=== PATIENT | male | born 1935 | race Caucasian/White ===

== ENCOUNTER 2021-06-15 17:21 | Inpatient (IN) ==
[2021-06-15 21:49] LABS: Basophils % 0.4 % (0.0-0.8); Eosinophils % 0.1 % (0.00-10.9); Hematocrit 32.8 VOL% (42.0-52.0); Hemoglobin 10.9 GM/DL (14.0-18.0); Immature Granulocytes % 0.5 %; Immature Granulocytes Absolute 0.06 #; Lymphocytes # 0.8 10*3/uL (1.4-4.0); Lymphocytes % 7.5 % (21.2-54.2); Mean Corpuscular HGB Conc 33.2 GM/DL (32-36); Mean Corpuscular Volume 93.7 FL (87-102); Mean Platelet Volume 10.5 FL (9.6-12.0); Monocytes % 10.4 % (1.7-12.7); Neutrophils % 81.1 % (38.7-73.9); Platelet Count 294 T/CUMM (130-400); White Blood Count 11.2 T/CUMM (4-12)
[2021-06-15 21:52] LABS: Uric Acid 8.6 MG/DL (3.5-7.2)
[2021-06-15 21:56] LABS: Albumin 3.3 G/DL (3.4-5.0); Bilirubin,Total 1.1 MG/DL (0.20-1.00); Calcium 9.1 MG/DL (8.5-10.1); Osmolality,Calculated 281.5 MOS/KG (273-304); Potassium 3.8 MMOL/L (3.5-5.1)
[2021-06-15] MEDS ORDERED: COLCHICINE 0.6 MG CAPSULE PO STA (21:58)
[2021-06-15] MEDS ORDERED: KETOROLAC 30 MG/1 ML VIAL IV STA (21:58)
[2021-06-15] MEDS ORDERED: DEXAMETHASONE 4 MG/1 ML VIAL IV STA (21:58)
[2021-06-15 23:33] LABS: Bilirubin,Urine Negative (Negative); Blood, Urine Negative (Negative); Glucose,Urine (UA) Negative (Negative); Hyaline Casts,Urine 13 /LPF (0-3); Ketones,Urine Negative (Negative); Mucus,Urine Occasional /LPF (Occasional); Nitrite,Urine Negative (Negative); Protein,Urine Negative; RBC,Urine 2 /HPF (0-4); Squamous Epithelial Cell,Urine Occasional /HPF (0-10); Urine Appearance CLEAR (Clear); Urine Color Yellow (Yellow); Urine Specific Gravity 1.016 (1.001-1.035); Urine Urobilinogen < 2.0 EU/DL (0.2-1.0)
[2021-06-16] MEDS ORDERED: DEXTROSE 50% 25 GM/50 ML VIAL IV PRN ×2 (00:45→10:58)
[2021-06-16] MEDS ORDERED: GLUCAGON 1 MG VIAL IM PRN ×2 (00:45→10:58)
[2021-06-16] MEDS ORDERED: ACETAMINOPHEN 325 MG TABLET PO PRN (00:46)
[2021-06-16] MEDS ORDERED: KETOROLAC 30 MG/1 ML VIAL IV PRN (00:46)
[2021-06-16] MEDS ORDERED: ONDANSETRON 4 MG/2 ML VIAL IV PRN (00:46)
[2021-06-16] MEDS ORDERED: DOCUSATE SODIUM 100 MG CAPSULE PO PRN (00:46)
[2021-06-16 04:33] LABS: Basophils % 0.1 % (0.0-0.8); Eosinophils % 0.1 % (0.00-10.9); Hematocrit 38.1 VOL% (42.0-52.0); Hemoglobin 12.3 GM/DL (14.0-18.0); Immature Granulocytes % 0.7 %; Immature Granulocytes Absolute 0.08 #; Lymphocytes # 0.7 10*3/uL (1.4-4.0); Lymphocytes % 5.8 % (21.2-54.2); Mean Corpuscular HGB Conc 32.3 GM/DL (32-36); Mean Corpuscular Volume 94.8 FL (87-102); Mean Platelet Volume 10.4 FL (9.6-12.0); Monocytes % 5.8 % (1.7-12.7); Neutrophils % 87.5 % (38.7-73.9); Platelet Count 278 T/CUMM (130-400); Red Blood Count 4.02 MC/CUMM (3.8-5.5); White Blood Count 11.2 T/CUMM (4-12)
[2021-06-16 05:34] LABS: Calcium 9.5 MG/DL (8.5-10.1); Osmolality,Calculated 283.5 MOS/KG (273-304); Potassium 3.9 MMOL/L (3.5-5.1)
[2021-06-16] MEDS ORDERED: LIDOCAINE 1% 50 ML VIAL MISC INJ ONE (07:54)
[2021-06-16 08:16] LABS: Cholesterol Crystals None Seen /LPF
[2021-06-16 08:22] LABS: Lymphocytes,Synovial Fluid 2 %; Neutrophils,Synovial Fluid 95 %
[2021-06-16] MEDS ORDERED: DEXAMETHASONE 4 MG/1 ML VIAL IV SCH (09:00)
[2021-06-16] MEDS: COLCHICINE 0.6 MG CAPSULE PO SCH ×2 (09:53→21:22)
[2021-06-16] MEDS ORDERED: DIAZEPAM 5 MG TABLET PO PRN (10:58)
[2021-06-16] MEDS: cefTRIAXone 2,000 MG in SODIUM CHLORIDE 0.9% 100 ML IV SCH (11:49)
[2021-06-16] MEDS: INSULIN REGULAR 100 UNIT/ML SUBCUT SCH ×3 (11:49→23:53)
[2021-06-16] MEDS: VANCOMYCIN INJ 1,000 MG in SODIUM CHLORIDE 0.9% 250 ML IV SCH (16:55)
[2021-06-16] MEDS: ATORVASTATIN 40 MG TABLET PO SCH (21:22)
[2021-06-16] MEDS: ENOXAPARIN 40 MG/0.4 ML SYRINGE SUBCUT SCH (21:22)
[2021-06-16] MEDS: TICAGRELOR 90 MG TABLET PO SCH (21:22)
[2021-06-16] MEDS: GABAPENTIN 300 MG CAPSULE PO SCH (21:22)
[2021-06-17 06:30] LABS: Basophils % 0.1 % (0.0-0.8); Hematocrit 33.8 VOL% (42.0-52.0); Hemoglobin 11.2 GM/DL (14.0-18.0); Immature Granulocytes % 0.6 %; Immature Granulocytes Absolute 0.08 #; Lymphocytes # 0.6 10*3/uL (1.4-4.0); Lymphocytes % 4.8 % (21.2-54.2); Mean Corpuscular HGB Conc 33.1 GM/DL (32-36); Mean Corpuscular Volume 93.9 FL (87-102); Mean Platelet Volume 10.8 FL (9.6-12.0); Monocytes % 8.8 % (1.7-12.7); Neutrophils % 85.7 % (38.7-73.9); Platelet Count 283 T/CUMM (130-400); Red Cell Distribution Width 14.7 % (9.3-17.3); White Blood Count 13.1 T/CUMM (4-12)
[2021-06-17 06:53] LABS: Calcium 8.9 MG/DL (8.5-10.1); Osmolality,Calculated 284.3 MOS/KG (273-304); Potassium 3.4 MMOL/L (3.5-5.1)
[2021-06-17 07:10] LABS: Band Neutrophils 2 % (0-10); Hypochromasia 1+; Lymphocytes 3 % (20-55); Segmented Neutrophils 87 % (50-85); Total Cells Counted 100
[2021-06-17 07:11] LABS: Microcytosis 1+; Platelet Estimate Normal; Polychromasia Slight
[2021-06-17] MEDS: TICAGRELOR 90 MG TABLET PO SCH ×2 (10:09→22:06)
[2021-06-17] MEDS: ASPIRIN EC 81 MG TABLET PO SCH (10:10)
[2021-06-17] MEDS: COLCHICINE 0.6 MG CAPSULE PO SCH ×2 (10:10→22:05)
[2021-06-17] MEDS: GABAPENTIN 300 MG CAPSULE PO SCH ×2 (10:10→22:06)
[2021-06-17] MEDS: cefTRIAXone 2,000 MG in SODIUM CHLORIDE 0.9% 100 ML IV SCH (10:11)
[2021-06-17] MEDS ORDERED: TEMAZEPAM 15 MG CAPSULE PO PRN (10:42)
[2021-06-17] MEDS: INSULIN REGULAR 100 UNIT/ML SUBCUT SCH ×4 (10:51→22:07)
[2021-06-17] MEDS ORDERED: TUBERCULIN SKIN TEST 0.1 ML SYRINGE INTRADERM ONE (11:00)
[2021-06-17] MEDS: VANCOMYCIN INJ 1,000 MG in SODIUM CHLORIDE 0.9% 250 ML IV SCH (13:02)
[2021-06-17] MEDS ORDERED: POTASSIUM CHLORIDE 20 MEQ TABLET PO ONE (17:00)
[2021-06-17] MEDS: ATORVASTATIN 40 MG TABLET PO SCH (22:06)
[2021-06-17] MEDS: ENOXAPARIN 40 MG/0.4 ML SYRINGE SUBCUT SCH (22:06)
[2021-06-18 05:45] LABS: Basophils % 0.2 % (0.0-0.8); Eosinophils # 0.1 10*3/uL (0.0-0.87); Eosinophils % 1.1 % (0.00-10.9); Hematocrit 37.6 VOL% (42.0-52.0); Hemoglobin 12.3 GM/DL (14.0-18.0); Immature Granulocytes % 1.3 %; Immature Granulocytes Absolute 0.11 #; Lymphocytes # 0.9 10*3/uL (1.4-4.0); Lymphocytes % 10.8 % (21.2-54.2); Mean Corpuscular HGB Conc 32.7 GM/DL (32-36); Mean Corpuscular Volume 94.7 FL (87-102); Mean Platelet Volume 10.6 FL (9.6-12.0); Monocytes % 11.2 % (1.7-12.7); Neutrophils % 75.4 % (38.7-73.9); Platelet Count 310 T/CUMM (130-400); Red Blood Count 3.97 MC/CUMM (3.8-5.5); Red Cell Distribution Width 14.8 % (9.3-17.3); White Blood Count 8.5 T/CUMM (4-12)
[2021-06-18] MEDS: VANCOMYCIN INJ 1,000 MG in SODIUM CHLORIDE 0.9% 250 ML IV SCH (05:47)
[2021-06-18 06:25] LABS: Osmolality,Calculated 286.8 MOS/KG (273-304); Potassium 3.8 MMOL/L (3.5-5.1)
[2021-06-18 07:54] VITALS: BP 141/65
[2021-06-18] MEDS: INSULIN REGULAR 100 UNIT/ML SUBCUT SCH ×2 (09:45→13:57)
[2021-06-18] MEDS: cefTRIAXone 2,000 MG in SODIUM CHLORIDE 0.9% 100 ML IV SCH (09:46)
[2021-06-18] MEDS: ASPIRIN EC 81 MG TABLET PO SCH (09:48)
[2021-06-18] MEDS: GABAPENTIN 300 MG CAPSULE PO SCH (09:48)
[2021-06-18] MEDS: TICAGRELOR 90 MG TABLET PO SCH (09:49)
[2021-06-18] MEDS: COLCHICINE 0.6 MG CAPSULE PO SCH (09:49)
[2021-06-18] MEDS ORDERED: HEPARIN LOCK FLUSH 500 UNIT/5 ML SYRINGE IV PRN (12:53)
== END 2021-06-18 13:28 | DRG 554 ==
LOC: EDBD → EDUNIT# → N.EDINP 17:21 → N.ED 17:21 → SUATTDRO 06-16 00:45 → N.5E 06-16 11:16
PROVIDERS: ADMIT Internal Medicine; ATTEND Internal Medicine

== ENCOUNTER 2021-07-16 19:09 | Inpatient (IN) ==
[2021-07-16] MEDS ORDERED: SODIUM CHLORIDE 0.9% 1,000 ML IV STA (20:37)
[2021-07-16] MEDS ORDERED: ONDANSETRON 4 MG/2 ML VIAL IV STA (20:44)
[2021-07-16 20:45] LABS: Basophils % 0.2 % (0.0-0.8); Hematocrit 42.5 VOL% (42.0-52.0); Hemoglobin 13.8 GM/DL (14.0-18.0); Immature Granulocytes % 1.1 %; Immature Granulocytes Absolute 0.09 #; Lymphocytes # 0.3 10*3/uL (1.4-4.0); Lymphocytes % 3.3 % (21.2-54.2); Mean Corpuscular HGB Conc 32.5 GM/DL (32-36); Mean Corpuscular Volume 93.4 FL (87-102); Mean Platelet Volume 12.2 FL (9.6-12.0); Monocytes % 10.2 % (1.7-12.7); Neutrophils % 85.2 % (38.7-73.9); Platelet Count 237 T/CUMM (130-400); Red Blood Count 4.55 MC/CUMM (3.8-5.5); Red Cell Distribution Width 15.3 % (9.3-17.3); White Blood Count 8.3 T/CUMM (4-12)
[2021-07-16 21:12] LABS: Alanine Aminotransferase 320 U/L (16-61); Albumin 3.6 G/DL (3.4-5.0); Alkaline Phosphatase 178 U/L (45-117); Aspartate Amino Transferase 319 U/L (0-37); Blood Urea Nitrogen 47 MG/DL (7-18); Calcium 8.3 MG/DL (8.5-10.1); Carbon Dioxide 22 MMOL/L (21-32); Estimated Glom Filtration Rate 32 ML/MIN; Glucose 138 MG/DL (74-106); Osmolality,Calculated 292.4 MOS/KG (273-304); Potassium 3.3 MMOL/L (3.5-5.1); Sodium 140 MMOL/L (136-145); Total Protein 6.5 G/DL (6.4-8.2)
[2021-07-16 23:12] LABS: Hypochromasia Slight; Ovalocytes Slight
[2021-07-16] MEDS ORDERED: MAGNESIUM SULF RIDER 4 GM/100 ML PREMIX IV ONE (23:31)
[2021-07-16] MEDS ORDERED: ALBUTEROL/IPRATROPIUM 3 ML NEB RESP TX PRN (23:34)
[2021-07-17] MEDS ORDERED: SODIUM CHLORIDE 0.9% 1,000 ML IV SCH (00:30)
[2021-07-17] MEDS: cefTRIAXone 1,000 MG in SODIUM CHLORIDE 0.9% 100 ML IV SCH ×2 (02:38→23:43)
[2021-07-17] MEDS: ENOXAPARIN 40 MG/0.4 ML SYRINGE SUBCUT SCH ×2 (03:10→23:43)
[2021-07-17 04:53] LABS: Albumin 2.9 G/DL (3.4-5.0); Bilirubin,Direct 0.53 MG/DL (0.0-0.20); Bilirubin,Indirect 0.7 MG/DL (0.0-1.0); Bilirubin,Total 1.2 MG/DL (0.20-1.00); Calcium 7.5 MG/DL (8.5-10.1); Osmolality,Calculated 288.5 MOS/KG (273-304); Potassium 3.5 MMOL/L (3.5-5.1); Total Protein 5.9 G/DL (6.4-8.2)
[2021-07-17 05:28] LABS: Hepatitis B Core IgM Quant 0.08 Index; Hepatitis B Surface Ag Quant < 0.10 Index; Hepatitis B Surface Ag Result Non-Reactive (NonReactive); Hepatitis C Virus Ab Quant 0.05 Index; Hepatitis C Virus Ab Result Non-Reactive (NonReactive)
[2021-07-17] MEDS: POTASSIUM CHLORIDE RIDER 10 MEQ/100 ML PREMIX IV SCH ×6 (06:58→11:58)
[2021-07-17 07:54] LABS: Bilirubin,Urine Negative (Negative); Blood, Urine Negative (Negative); Glucose,Urine (UA) Negative (Negative); Hyaline Casts,Urine 6 /LPF (0-3); Ketones,Urine 20 mg/dL (Negative); Mucus,Urine Occasional /LPF (Occasional); Nitrite,Urine Negative (Negative); Protein,Urine Negative; RBC,Urine <1 /HPF (0-4); Urine Appearance CLEAR (Clear); Urine Color Yellow (Yellow); Urine Specific Gravity 1.016 (1.001-1.035); Urine Urobilinogen < 2.0 EU/DL (0.2-1.0)
[2021-07-17] MEDS: POTASSIUM CHLORIDE 20 MEQ TABLET PO PRN (23:42)
[2021-07-18] MEDS: POTASSIUM CHLORIDE 20 MEQ TABLET PO PRN ×2 (01:59→04:23)
[2021-07-18 05:48] LABS: Calcium 7.8 MG/DL (8.5-10.1); Osmolality,Calculated 276.7 MOS/KG (273-304); Potassium 4.2 MMOL/L (3.5-5.1)
[2021-07-18] MEDS ORDERED: ONDANSETRON 4 MG/2 ML VIAL IV PRN (09:45)
[2021-07-18] MEDS: PIPERACILLIN/TAZOBACTAM 3,375 MG in SODIUM CHLORIDE 0.9% 100 ML IV SCH ×2 (12:20→21:23)
[2021-07-18] MEDS: ALBUTEROL/IPRATROPIUM 3 ML NEB RESP TX SCH ×2 (13:20→20:50)
[2021-07-19] MEDS: ENOXAPARIN 40 MG/0.4 ML SYRINGE SUBCUT SCH ×2 (00:01→23:32)
[2021-07-19] MEDS: ALBUTEROL/IPRATROPIUM 3 ML NEB RESP TX SCH ×4 (00:06→19:43)
[2021-07-19] MEDS: PIPERACILLIN/TAZOBACTAM 3,375 MG in SODIUM CHLORIDE 0.9% 100 ML IV SCH ×3 (03:54→20:34)
[2021-07-19 05:21] LABS: Basophils % 0.4 % (0.0-0.8); Eosinophils # 0.1 10*3/uL (0.0-0.87); Eosinophils % 0.9 % (0.00-10.9); Hematocrit 33.8 VOL% (42.0-52.0); Immature Granulocytes % 2.7 %; Immature Granulocytes Absolute 0.15 #; Lymphocytes # 0.4 10*3/uL (1.4-4.0); Lymphocytes % 7.9 % (21.2-54.2); Mean Corpuscular HGB Conc 32.5 GM/DL (32-36); Mean Corpuscular Volume 94.4 FL (87-102); Mean Platelet Volume 12.5 FL (9.6-12.0); Monocytes % 13.5 % (1.7-12.7); Neutrophils % 74.6 % (38.7-73.9); Platelet Count 147 T/CUMM (130-400); Red Blood Count 3.58 MC/CUMM (3.8-5.5); Red Cell Distribution Width 15.7 % (9.3-17.3); White Blood Count 5.5 T/CUMM (4-12)
[2021-07-19 05:55] LABS: Albumin 2.7 G/DL (3.4-5.0); Bilirubin,Total 0.7 MG/DL (0.20-1.00); Calcium 7.8 MG/DL (8.5-10.1); Osmolality,Calculated 277.7 MOS/KG (273-304); Potassium 3.5 MMOL/L (3.5-5.1); Total Protein 5.5 G/DL (6.4-8.2)
[2021-07-19] MEDS: POTASSIUM CHLORIDE 20 MEQ TABLET PO PRN ×2 (08:16→11:47)
[2021-07-20] MEDS: ALBUTEROL/IPRATROPIUM 3 ML NEB RESP TX SCH ×4 (01:35→20:10)
[2021-07-20] MEDS: HYDROmorphone 2 MG/1 ML VIAL IV PRN ×2 (03:39→19:50)
[2021-07-20] MEDS: PIPERACILLIN/TAZOBACTAM 3,375 MG in SODIUM CHLORIDE 0.9% 100 ML IV SCH ×3 (03:45→19:48)
[2021-07-20] MEDS ORDERED: ZINC OXIDE PASTE 113 GM TUBE TOP PRN (12:00)
[2021-07-21] MEDS: ALBUTEROL/IPRATROPIUM 3 ML NEB RESP TX SCH ×4 (00:28→19:09)
[2021-07-21] MEDS: ENOXAPARIN 40 MG/0.4 ML SYRINGE SUBCUT SCH (00:31)
[2021-07-21] MEDS: PIPERACILLIN/TAZOBACTAM 3,375 MG in SODIUM CHLORIDE 0.9% 100 ML IV SCH ×3 (03:44→21:03)
[2021-07-21] MEDS ORDERED: TUBERCULIN SKIN TEST 0.1 ML SYRINGE INTRADERM ONE (08:08)
[2021-07-21] MEDS: ursodioL 300 MG CAPSULE PO SCH ×2 (13:37→21:03)
[2021-07-21] MEDS: HYDROmorphone 2 MG/1 ML VIAL IV PRN ×2 (16:58→21:04)
[2021-07-22] MEDS: ALBUTEROL/IPRATROPIUM 3 ML NEB RESP TX SCH ×3 (00:23→12:57)
[2021-07-22] MEDS: ENOXAPARIN 40 MG/0.4 ML SYRINGE SUBCUT SCH (00:46)
[2021-07-22] MEDS: PIPERACILLIN/TAZOBACTAM 3,375 MG in SODIUM CHLORIDE 0.9% 100 ML IV SCH ×2 (04:19→12:09)
[2021-07-22] MEDS: ursodioL 300 MG CAPSULE PO SCH (08:46)
[2021-07-22 11:15] VITALS: BP 108/75
[2021-07-22] MEDS: HYDROmorphone 2 MG/1 ML VIAL IV PRN (11:53)
== END 2021-07-22 16:31 | DRG 683 ==
LOC: N.ED 19:09 → SUATTDRO 23:30 → N.EDINP 23:30 → N.3E 07-17 01:26
PROVIDERS: ADMIT Internal Medicine; ATTEND Internal Medicine Geriatric Medicine

== ENCOUNTER 2021-08-09 20:08 | Inpatient (IN) ==
[2021-08-09 22:36] LABS: Basophils % 0.5 % (0.0-0.8); Eosinophils # 0.1 10*3/uL (0.0-0.87); Eosinophils % 2.7 % (0.00-10.9); Hematocrit 45.1 VOL% (42.0-52.0); Hemoglobin 14.8 GM/DL (14.0-18.0); Immature Granulocytes % 1.4 %; Immature Granulocytes Absolute 0.03 #; Lymphocytes # 0.3 10*3/uL (1.4-4.0); Lymphocytes % 15.5 % (21.2-54.2); Mean Corpuscular HGB Conc 32.8 GM/DL (32-36); Mean Corpuscular Volume 89.8 FL (87-102); Monocytes % 17.3 % (1.7-12.7); Neutrophils % 62.6 % (38.7-73.9); Platelet Count 151 T/CUMM (130-400); Red Blood Count 5.02 MC/CUMM (3.8-5.5); Red Cell Distribution Width 15.9 % (9.3-17.3); White Blood Count 2.2 T/CUMM (4-12)
[2021-08-09 22:57] LABS: Alanine Aminotransferase 152 U/L (16-61); Albumin 2.9 G/DL (3.4-5.0); Alkaline Phosphatase 162 U/L (45-117); Aspartate Amino Transferase 148 U/L (0-37); Blood Urea Nitrogen 56 MG/DL (7-18); Calcium 8.5 MG/DL (8.5-10.1); Carbon Dioxide 18 MMOL/L (21-32); Estimated Glom Filtration Rate 29 ML/MIN; Glucose 132 MG/DL (74-106); Osmolality,Calculated 287.1 MOS/KG (273-304); Sodium 135 MMOL/L (136-145); Total Protein 6.5 G/DL (6.4-8.2)
[2021-08-09] MEDS ORDERED: SODIUM CHLORIDE 0.9% 1,000 ML IV STA (23:52)
[2021-08-10] MEDS ORDERED: ACETAMINOPHEN 325 MG TABLET PO PRN (00:41)
[2021-08-10] MEDS ORDERED: ONDANSETRON 4 MG/2 ML VIAL IV PRN (00:41)
[2021-08-10] MEDS ORDERED: DEXTROSE 50% 25 GM/50 ML VIAL IV PRN ×2 (00:41)
[2021-08-10] MEDS ORDERED: MELATONIN 3 MG TABLET PO PRN (00:41)
[2021-08-10] MEDS ORDERED: GLUCAGON 1 MG VIAL IM PRN ×2 (00:41)
[2021-08-10] MEDS ORDERED: SODIUM CHLORIDE 0.9% 1,000 ML IV ONE (00:50)
[2021-08-10 00:56] LABS: Bilirubin,Urine Negative (Negative); Blood, Urine Moderate mg/dL (Negative); Glucose,Urine (UA) Negative (Negative); Ketones,Urine 5 mg/dL (Negative); Mucus,Urine Occasional /LPF (Occasional); Nitrite,Urine Negative (Negative); Protein,Urine 100 MG/DL; RBC,Urine 2 /HPF (0-4); Squamous Epithelial Cell,Urine Occasional /HPF (0-10); Urine Appearance CLEAR (Clear); Urine Color Yellow (Yellow); Urine Specific Gravity 1.018 (1.001-1.035); Urine Urobilinogen < 2.0 EU/DL (0.2-1.0)
[2021-08-10] MEDS ORDERED: SODIUM CHLORIDE 0.9% 1,000 ML IV SCH (01:00)
[2021-08-10] MEDS ORDERED: POTASSIUM CHLORIDE 20 MEQ TABLET PO PRN (01:41)
[2021-08-10 01:58] LABS: Lymphocytes 27 % (20-55); Nucleated Red Blood Cells 1 (0-5); Platelet Estimate Normal; Segmented Neutrophils 64 % (50-85); Total Cells Counted 100
[2021-08-10 01:59] LABS: Anisocytosis 1+; Microcytosis Slight
[2021-08-10 02:00] LABS: Ovalocytes Few
[2021-08-10] MEDS: ENOXAPARIN 30 MG/0.3 ML SYRINGE SUBCUT SCH ×2 (02:00→13:20)
[2021-08-10 06:53] LABS: Eosinophils % 0.5 % (0.00-10.9); Hematocrit 39.4 VOL% (42.0-52.0); Hemoglobin 13.2 GM/DL (14.0-18.0); Immature Granulocytes % 1.1 %; Immature Granulocytes Absolute 0.02 #; Lymphocytes # 0.3 10*3/uL (1.4-4.0); Lymphocytes % 14.3 % (21.2-54.2); Mean Corpuscular HGB Conc 33.5 GM/DL (32-36); Mean Corpuscular Volume 90.8 FL (87-102); Monocytes % 18.7 % (1.7-12.7); Neutrophils % 65.4 % (38.7-73.9); Platelet Count 146 T/CUMM (130-400); Red Blood Count 4.34 MC/CUMM (3.8-5.5); Red Cell Distribution Width 15.7 % (9.3-17.3); White Blood Count 1.8 T/CUMM (4-12)
[2021-08-10 07:17] LABS: Hypochromasia 1+; Lymphocytes 23 % (20-55); Segmented Neutrophils 62 % (50-85); Total Cells Counted 100
[2021-08-10 07:18] LABS: Acanthocytes Few; Microcytosis 1+; Platelet Estimate Adequate
[2021-08-10 07:19] LABS: Ovalocytes Slight
[2021-08-10 07:26] LABS: Albumin 2.5 G/DL (3.4-5.0); Bilirubin,Total 1.2 MG/DL (0.20-1.00); Calcium 7.9 MG/DL (8.5-10.1); Ferritin 2359.3 ng/mL (26-388); Potassium 2.6 MMOL/L (3.5-5.1); Total Protein 5.7 G/DL (6.4-8.2)
[2021-08-10] MEDS: INSULIN REGULAR 100 UNIT/ML SUBCUT SCH ×4 (09:12→20:30)
[2021-08-10] MEDS: ASCORBIC ACID 500 MG TABLET PO SCH ×2 (09:46→20:30)
[2021-08-10] MEDS: CHOLECALCIFEROL 1,000 UNIT TABLET PO SCH (09:46)
[2021-08-10] MEDS: ZINC GLUCONATE 50 MG TABLET PO SCH (09:47)
[2021-08-10] MEDS: FAMOTIDINE 20 MG TABLET PO SCH ×2 (09:47→20:31)
[2021-08-10] MEDS: DEXAMETHASONE 4 MG/1 ML VIAL IV SCH (09:47)
[2021-08-10] MEDS: CETIRIZINE 10 MG TABLET PO SCH (09:47)
[2021-08-10] MEDS ORDERED: POTASSIUM CHLORIDE 20 MEQ TABLET PO ONE (16:15)
[2021-08-10] MEDS ORDERED: ALBUTEROL/IPRATROPIUM 3 ML NEB RESP TX PRN (16:18)
[2021-08-10] MEDS: MORPHINE 2 MG/1 ML SYRINGE IV PRN (17:17)
[2021-08-11] MEDS: ENOXAPARIN 30 MG/0.3 ML SYRINGE SUBCUT SCH ×2 (00:08→13:12)
[2021-08-11] MEDS: MORPHINE 2 MG/1 ML SYRINGE IV PRN ×3 (06:10→20:17)
[2021-08-11 07:08] LABS: Basophils % 0.4 % (0.0-0.8); Hematocrit 36.4 VOL% (42.0-52.0); Hemoglobin 12.2 GM/DL (14.0-18.0); Immature Granulocytes % 0.9 %; Immature Granulocytes Absolute 0.02 #; Lymphocytes # 0.1 10*3/uL (1.4-4.0); Lymphocytes % 6.1 % (21.2-54.2); Mean Corpuscular HGB Conc 33.5 GM/DL (32-36); Mean Corpuscular Volume 90.5 FL (87-102); Monocytes % 27.8 % (1.7-12.7); Neutrophils % 64.8 % (38.7-73.9); Platelet Count 120 T/CUMM (130-400); Red Blood Count 4.02 MC/CUMM (3.8-5.5); Red Cell Distribution Width 15.5 % (9.3-17.3); White Blood Count 2.3 T/CUMM (4-12)
[2021-08-11 07:20] LABS: Calcium 8.2 MG/DL (8.5-10.1); Osmolality,Calculated 281.8 MOS/KG (273-304)
[2021-08-11 07:30] LABS: Band Neutrophils 1 % (0-10); Hypochromasia Slight; Lymphocytes 10 % (20-55); Microcytosis Slight; Ovalocytes Slight; Segmented Neutrophils 71 % (50-85); Total Cells Counted 100
[2021-08-11] MEDS ORDERED: POTASSIUM BICARB EFFERVESCENT 20 MEQ TAB.EFF PO ONE (08:23)
[2021-08-11] MEDS ORDERED: POTASSIUM CHLORIDE 20 MEQ TABLET PO ONE (08:35)
[2021-08-11] MEDS: INSULIN REGULAR 100 UNIT/ML SUBCUT SCH ×4 (08:35→20:19)
[2021-08-11] MEDS ORDERED: MAGNESIUM SULF RIDER 2 GM/50 ML PREMIX IV ONE (09:00)
[2021-08-11] MEDS: ASCORBIC ACID 500 MG TABLET PO SCH ×2 (09:15→20:21)
[2021-08-11] MEDS: CETIRIZINE 10 MG TABLET PO SCH (09:15)
[2021-08-11] MEDS: DEXAMETHASONE 4 MG/1 ML VIAL IV SCH (09:15)
[2021-08-11] MEDS: ZINC GLUCONATE 50 MG TABLET PO SCH (09:15)
[2021-08-11] MEDS: CHOLECALCIFEROL 1,000 UNIT TABLET PO SCH (09:15)
[2021-08-11] MEDS: FAMOTIDINE 20 MG TABLET PO SCH ×2 (09:15→20:20)
[2021-08-11] MEDS: ENOXAPARIN 60 MG/0.6 ML SYRINGE SUBCUT SCH (18:10)
[2021-08-12] MEDS: ENOXAPARIN 60 MG/0.6 ML SYRINGE SUBCUT SCH (05:00)
[2021-08-12] MEDS: MORPHINE 2 MG/1 ML SYRINGE IV PRN ×2 (05:00→11:35)
[2021-08-12 06:49] LABS: Basophils % 0.5 % (0.0-0.8); Hematocrit 37.5 VOL% (42.0-52.0); Hemoglobin 12.6 GM/DL (14.0-18.0); Immature Granulocytes % 1.5 %; Immature Granulocytes Absolute 0.06 #; Lymphocytes # 0.1 10*3/uL (1.4-4.0); Mean Corpuscular HGB Conc 33.6 GM/DL (32-36); Mean Corpuscular Volume 89.7 FL (87-102); Monocytes % 22.5 % (1.7-12.7); NRBC # 0.03 10*3/uL; Neutrophils % 72.5 % (38.7-73.9); Platelet Count 116 T/CUMM (130-400); Red Blood Count 4.18 MC/CUMM (3.8-5.5); Red Cell Distribution Width 15.8 % (9.3-17.3)
[2021-08-12 07:11] LABS: Band Neutrophils 1 % (0-10); Hypochromasia Slight; Lymphocytes 12 % (20-55); Microcytosis Slight; Platelet Estimate Decreased; Segmented Neutrophils 62 % (50-85); Total Cells Counted 100
[2021-08-12 07:20] LABS: Calcium 8.4 MG/DL (8.5-10.1); Osmolality,Calculated 279.7 MOS/KG (273-304); Potassium 3.4 MMOL/L (3.5-5.1)
[2021-08-12] MEDS: INSULIN REGULAR 100 UNIT/ML SUBCUT SCH ×2 (07:42→11:39)
[2021-08-12 07:44] VITALS: BP 105/69
[2021-08-12] MEDS: FAMOTIDINE 20 MG TABLET PO SCH (08:23)
[2021-08-12] MEDS: CHOLECALCIFEROL 1,000 UNIT TABLET PO SCH (08:23)
[2021-08-12] MEDS: ASCORBIC ACID 500 MG TABLET PO SCH (08:23)
[2021-08-12] MEDS: ZINC GLUCONATE 50 MG TABLET PO SCH (08:23)
[2021-08-12] MEDS: DEXAMETHASONE 4 MG/1 ML VIAL IV SCH (08:23)
[2021-08-12] MEDS ORDERED: POTASSIUM CHLORIDE 20 MEQ TABLET PO ONE (08:25)
[2021-08-12] MEDS: CETIRIZINE 10 MG TABLET PO SCH (08:25)
[2021-08-12] MEDS ORDERED: MAGNESIUM SULF RIDER 2 GM/50 ML PREMIX IV ONE (08:28)
== END 2021-08-12 13:27 | DRG 178 ==
LOC: N.ED 20:08 → N.EDINP 08-10 00:41 → N.2E 08-10 03:29
PROVIDERS: ADMIT Internal Medicine; ATTEND Internal Medicine

== ENCOUNTER 2021-08-16 11:27 | Inpatient (IN) ==
[2021-08-16 12:25] LABS: Basophils # 0.1 10*3/uL (0.0-0.2); Basophils % 0.5 % (0.0-0.8); Hematocrit 36.4 VOL% (42.0-52.0); Immature Granulocytes % 8.3 %; Immature Granulocytes Absolute 1.07 #; Lymphocytes # 0.4 10*3/uL (1.4-4.0); Lymphocytes % 2.8 % (21.2-54.2); Mean Corpuscular Volume 91.7 FL (87-102); Monocytes % 8.6 % (1.7-12.7); NRBC # 0.12 10*3/uL; Neutrophils % 79.8 % (38.7-73.9); Platelet Count 107 T/CUMM (130-400); Red Blood Count 3.97 MC/CUMM (3.8-5.5); Red Cell Distribution Width 17.2 % (9.3-17.3); White Blood Count 12.9 T/CUMM (4-12)
[2021-08-16 12:34] LABS: INR 1.7; PT Patient Result 17.8 SECS (10.5-12.0); Partial Thromboplastin Time 38.7 SECS (23.9-33.8)
[2021-08-16 12:46] LABS: Band Neutrophils 1 % (0-10); Hypochromasia Slight; Lymphocytes 1 % (20-55); Microcytosis Slight; Nucleated Red Blood Cells 2 (0-5); Platelet Estimate Decreased; Segmented Neutrophils 92 % (50-85); Total Cells Counted 100
[2021-08-16 13:05] LABS: ABG Base Excess -0.7 MMOL/L (-2.5-2.5); ABG HCO3 23.8 MMOL/L (20-26); ABG Oxygen Saturation 99.6 % (95-100); ABG PCO2 38.1 MM HG (35-48); ABG PH 7.402 (7.35-7.45); ABG TCO2 20.7 MMOL/L (23-27)
[2021-08-16 13:09] LABS: Albumin 2.6 G/DL (3.4-5.0); Bilirubin,Total 2.6 MG/DL (0.20-1.00); Calcium 7.4 MG/DL (8.5-10.1); Osmolality,Calculated 286.3 MOS/KG (273-304); Potassium 3.6 MMOL/L (3.5-5.1); Total Protein 5.7 G/DL (6.4-8.2)
[2021-08-16] MEDS ORDERED: SODIUM CHLORIDE 0.9% 1,000 ML IV STA (13:22)
[2021-08-16] MEDS ORDERED: ROCURONIUM 100 MG/10 ML VIAL IV STA (13:32)
[2021-08-16] MEDS ORDERED: ETOMIDATE 20 MG/10 ML VIAL IV STA (13:32)
[2021-08-16] MEDS ORDERED: GLUCAGON 1 MG VIAL IM PRN (13:44)
[2021-08-16] MEDS ORDERED: hydrALAZINE 20 MG/1 ML VIAL IV PRN (13:44)
[2021-08-16] MEDS ORDERED: DEXTROSE 50% 25 GM/50 ML VIAL IV PRN (13:44)
[2021-08-16] MEDS ORDERED: ENOXAPARIN 40 MG/0.4 ML SYRINGE SUBCUT SCH (14:00)
[2021-08-16 14:43] LABS: Bacteria,Urine Occasional /HPF (Few); Bilirubin,Urine Negative (Negative); Blood, Urine Moderate mg/dL (Negative); Glucose,Urine (UA) Negative (Negative); Ketones,Urine Negative (Negative); Nitrite,Urine Negative (Negative); Protein,Urine Negative; RBC,Urine 9 /HPF (0-4); Urine Appearance CLEAR (Clear); Urine Color Yellow (Yellow); Urine Specific Gravity 1.011 (1.001-1.035); Urine Urobilinogen < 2.0 EU/DL (0.2-1.0)
[2021-08-16] MEDS: cefTRIAXone 1,000 MG in SODIUM CHLORIDE 0.9% 100 ML IV SCH (14:50)
[2021-08-16 15:10] LABS: Barbiturates Screen,Urine Negative (Negative); Benzodiazepines Screen,Urine Negative (Negative); Cannabinoid Screen,Urine Negative (Negative); Opiate Screen,Urine Negative (Negative); Phencyclidine Screen,Urine Negative (Negative)
[2021-08-16] MEDS ORDERED: MAGNESIUM SULF RIDER 4 GM/100 ML PREMIX IV PRN (15:59)
[2021-08-16] MEDS: SODIUM CHLORIDE 0.9% 1,000 ML IV SCH ×2 (16:00→16:52)
[2021-08-16] MEDS: methylPREDNISolone SOD SUC 40 MG/1 ML VIAL IV SCH (16:50)
[2021-08-16] MEDS: MIDAZOLAM 100 MG in SODIUM CHLORIDE 0.9% 80 ML IV PRN (16:52)
[2021-08-16] MEDS: AZITHROMYCIN INJ 500 MG in SODIUM CHLORIDE 0.9% 250 ML IV SCH (17:15)
[2021-08-16] MEDS: COLCHICINE 0.6 MG CAPSULE PO SCH (17:35)
[2021-08-16 17:58] LABS: Risk Ratio 3.27; Thyroid Stimulating Hormone 8.96 uIU/ml (0.358-3.74); VLDL Cholesterol 49.2 MG/DL
[2021-08-16] MEDS: FONDAPARINUX 2.5 MG/0.5 ML SYRINGE SUBCUT SCH (17:58)
[2021-08-16 18:02] LABS: Ferritin 1989.2 ng/mL (26-388)
[2021-08-16] MEDS: METOPROLOL TARTRATE 5 MG/5 ML VIAL IV SCH (18:02)
[2021-08-16] MEDS: ASCORBIC ACID 500 MG TABLET PO SCH (21:54)
[2021-08-16] MEDS: METOPROLOL SUCCINATE XL 50 MG TABLET PO SCH (21:54)
[2021-08-16] MEDS: MAGNESIUM SULF RIDER 2 GM/50 ML PREMIX IV PRN (21:55)
[2021-08-17] MEDS: methylPREDNISolone SOD SUC 40 MG/1 ML VIAL IV SCH ×3 (00:37→16:15)
[2021-08-17] MEDS: METOPROLOL TARTRATE 5 MG/5 ML VIAL IV SCH ×4 (01:39→17:08)
[2021-08-17 03:56] LABS: ABG Base Excess -3.4 MMOL/L (-2.5-2.5); ABG HCO3 21.6 MMOL/L (20-26); ABG Oxygen Saturation 99.5 % (95-100); ABG PCO2 24.8 MM HG (35-48); ABG PH 7.486 (7.35-7.45); ABG TCO2 16.7 MMOL/L (23-27)
[2021-08-17 04:10] LABS: Basophils % 0.3 % (0.0-0.8); Hematocrit 33.6 VOL% (42.0-52.0); Hemoglobin 10.6 GM/DL (14.0-18.0); Immature Granulocytes % 5.5 %; Immature Granulocytes Absolute 0.72 #; Lymphocytes # 0.2 10*3/uL (1.4-4.0); Lymphocytes % 1.5 % (21.2-54.2); Mean Corpuscular HGB Conc 31.5 GM/DL (32-36); Mean Corpuscular Volume 95.2 FL (87-102); NRBC # 0.11 10*3/uL; Neutrophils % 87.7 % (38.7-73.9); Platelet Count 98 T/CUMM (130-400); Red Blood Count 3.53 MC/CUMM (3.8-5.5); Red Cell Distribution Width 17.3 % (9.3-17.3)
[2021-08-17 04:33] LABS: INR 1.5; PT Patient Result 15.9 SECS (10.5-12.0)
[2021-08-17 04:34] LABS: Partial Thromboplastin Time 42.5 SECS (23.9-33.8)
[2021-08-17 04:35] LABS: Band Neutrophils 4 % (0-10); Lymphocytes 3 % (20-55); Nucleated Red Blood Cells 1 (0-5); Platelet Estimate Decreased; Segmented Neutrophils 92 % (50-85); Total Cells Counted 100
[2021-08-17 04:36] LABS: Albumin 2.2 G/DL (3.4-5.0); Bilirubin,Total 1.2 MG/DL (0.20-1.00); Calcium 7.2 MG/DL (8.5-10.1); Hypochromasia Slight; Microcytosis Slight; Osmolality,Calculated 289.3 MOS/KG (273-304); Potassium 3.6 MMOL/L (3.5-5.1); Total Protein 5.5 G/DL (6.4-8.2)
[2021-08-17 04:44] LABS: Ferritin 1768.5 ng/mL (26-388)
[2021-08-17] MEDS: amLODIPine 10 MG TABLET PO SCH (08:15)
[2021-08-17] MEDS: ZINC GLUCONATE 50 MG TABLET PO SCH (08:15)
[2021-08-17] MEDS: CHOLECALCIFEROL 1,000 UNIT TABLET PO SCH (08:15)
[2021-08-17] MEDS: ASCORBIC ACID 500 MG TABLET PO SCH ×2 (08:16→21:52)
[2021-08-17] MEDS: COLCHICINE 0.6 MG CAPSULE PO SCH ×2 (08:16→16:15)
[2021-08-17] MEDS: CETIRIZINE 10 MG TABLET PO SCH (08:43)
[2021-08-17] MEDS ORDERED: ASPIRIN EC 81 MG TABLET PO SCH (09:00)
[2021-08-17] MEDS: SODIUM CHLORIDE 0.9% 1,000 ML IV SCH ×2 (09:31→22:26)
[2021-08-17 10:43] LABS: ABG Base Excess -2.8 MMOL/L (-2.5-2.5); ABG HCO3 21.9 MMOL/L (20-26); ABG Oxygen Saturation 87.2 % (95-100); ABG PCO2 23.9 MM HG (35-48); ABG PH 7.507 (7.35-7.45); ABG PO2 52.3 MM HG (80-95); ABG TCO2 17.1 MMOL/L (23-27)
[2021-08-17] MEDS: FAMOTIDINE 20 MG/2 ML VIAL IV SCH ×2 (11:09→21:52)
[2021-08-17 13:26] LABS: ABG Base Excess -4.6 MMOL/L (-2.5-2.5); ABG HCO3 20.3 MMOL/L (20-26); ABG Oxygen Saturation 78.7 % (95-100); ABG PH 7.432 (7.35-7.45); ABG PO2 46.2 MM HG (80-95)
[2021-08-17] MEDS: cefTRIAXone 1,000 MG in SODIUM CHLORIDE 0.9% 100 ML IV SCH (14:18)
[2021-08-17] MEDS: AZITHROMYCIN INJ 500 MG in SODIUM CHLORIDE 0.9% 250 ML IV SCH (14:19)
[2021-08-17] MEDS ORDERED: SODIUM CHLORIDE 0.9% 1,000 ML IV ONE (16:16)
[2021-08-17] MEDS: FONDAPARINUX 2.5 MG/0.5 ML SYRINGE SUBCUT SCH (17:24)
[2021-08-17] MEDS: PHENYLEPHRINE DRIP 40 MG/250 ML PREMIX IV PRN (17:50)
[2021-08-17] MEDS: MIDAZOLAM 100 MG in SODIUM CHLORIDE 0.9% 80 ML IV PRN (20:20)
[2021-08-17] MEDS: METOPROLOL SUCCINATE XL 50 MG TABLET PO SCH (21:53)
[2021-08-18] MEDS: methylPREDNISolone SOD SUC 40 MG/1 ML VIAL IV SCH ×3 (00:17→17:19)
[2021-08-18] MEDS: MORPHINE 2 MG/1 ML SYRINGE IV PRN (00:30)
[2021-08-18] MEDS: METOPROLOL TARTRATE 5 MG/5 ML VIAL IV SCH ×4 (00:38→18:21)
[2021-08-18] MEDS: PHENYLEPHRINE DRIP 40 MG/250 ML PREMIX IV PRN ×3 (02:46→18:29)
[2021-08-18 04:53] LABS: ABG Base Excess -8.2 MMOL/L (-2.5-2.5); ABG HCO3 17.8 MMOL/L (20-26); ABG Oxygen Saturation 99.7 % (95-100); ABG PCO2 21.4 MM HG (35-48); ABG PH 7.445 (7.35-7.45); ABG TCO2 13.6 MMOL/L (23-27)
[2021-08-18 05:02] LABS: Basophils # 0.1 10*3/uL (0.0-0.2); Basophils % 0.4 % (0.0-0.8); Hematocrit 26.5 VOL% (42.0-52.0); Immature Granulocytes % 10.1 %; Immature Granulocytes Absolute 1.42 #; Lymphocytes # 0.5 10*3/uL (1.4-4.0); Lymphocytes % 3.5 % (21.2-54.2); Mean Corpuscular HGB Conc 31.7 GM/DL (32-36); Mean Platelet Volume 13.5 FL (9.6-12.0); Monocytes % 5.8 % (1.7-12.7); NRBC # 0.56 10*3/uL; Neutrophils % 80.2 % (38.7-73.9); Red Cell Distribution Width 17.2 % (9.3-17.3)
[2021-08-18 05:07] LABS: Hemoglobin 8.4 GM/DL (14.0-18.0); Platelet Count 122 T/CUMM (130-400); Red Blood Count 2.79 MC/CUMM (3.8-5.5)
[2021-08-18 05:17] LABS: Albumin 1.9 G/DL (3.4-5.0); Bilirubin,Total 0.7 MG/DL (0.20-1.00); Calcium 6.3 MG/DL (8.5-10.1); Osmolality,Calculated 304.6 MOS/KG (273-304); Potassium 3.3 MMOL/L (3.5-5.1); Total Protein 4.9 G/DL (6.4-8.2)
[2021-08-18 05:30] LABS: Band Neutrophils 3 % (0-10); Hypochromasia 1+; Lymphocytes 7 % (20-55); Microcytosis 1+; Nucleated Red Blood Cells 1 (0-5); Platelet Estimate Normal; Segmented Neutrophils 85 % (50-85); Total Cells Counted 100
[2021-08-18] MEDS: SODIUM CHLORIDE 0.9% 1,000 ML IV SCH (06:59)
[2021-08-18] MEDS: COLCHICINE 0.6 MG CAPSULE PO SCH ×2 (08:08→17:19)
[2021-08-18] MEDS: ASPIRIN CHEW 81 MG TABLET PO SCH (08:08)
[2021-08-18] MEDS: FAMOTIDINE 20 MG/2 ML VIAL IV SCH ×2 (08:09→21:30)
[2021-08-18] MEDS: CETIRIZINE 10 MG TABLET PO SCH (08:09)
[2021-08-18] MEDS: ZINC GLUCONATE 50 MG TABLET PO SCH (08:09)
[2021-08-18] MEDS: ASCORBIC ACID 500 MG TABLET PO SCH ×2 (08:09→21:30)
[2021-08-18] MEDS: CHOLECALCIFEROL 1,000 UNIT TABLET PO SCH (08:09)
[2021-08-18] MEDS: amLODIPine 10 MG TABLET PO SCH (08:09)
[2021-08-18] MEDS ORDERED: SODIUM BICARBONATE 50 MEQ/50 ML VIAL IV ONE (08:47)
[2021-08-18] MEDS ORDERED: INFLUENZA VIRUS VACCINE 0.5 ML SYRINGE IM ONE (09:00)
[2021-08-18] MEDS ORDERED: CALCIUM GLUCONATE 1,000 MG in SODIUM CHLORIDE 0.9% 100 ML IV ONE (10:30)
[2021-08-18] MEDS: SODIUM BICARB INJ 100 MEQ in DEXTROSE 5% NACL 0.45% 1,000 ML IV SCH (10:49)
[2021-08-18] MEDS: INSULIN REGULAR 100 UNIT/ML SUBCUT SCH ×2 (11:39→18:20)
[2021-08-18] MEDS: AZITHROMYCIN INJ 500 MG in SODIUM CHLORIDE 0.9% 250 ML IV SCH (14:07)
[2021-08-18] MEDS: cefTRIAXone 1,000 MG in SODIUM CHLORIDE 0.9% 100 ML IV SCH (14:07)
[2021-08-18] MEDS ORDERED: POTASSIUM PHOSPHATE 20 MMOL in SODIUM CHLORIDE 0.9% 100 ML IV ONE (15:00)
[2021-08-18] MEDS ORDERED: SODIUM CHLORIDE 0.9% 1,000 ML IV ONE (15:14)
[2021-08-18 15:54] LABS: ABG Base Excess -9.2 MMOL/L (-2.5-2.5); ABG Oxygen Saturation 98.1 % (95-100); ABG PCO2 22.7 MM HG (35-48); ABG PH 7.411 (7.35-7.45); ABG TCO2 13.6 MMOL/L (23-27)
[2021-08-18] MEDS: DEXMEDETOMIDINE 200 MCG in SODIUM CHLORIDE 0.9% 48 ML IV PRN ×2 (17:20→23:38)
[2021-08-18] MEDS: FONDAPARINUX 2.5 MG/0.5 ML SYRINGE SUBCUT SCH (17:38)
[2021-08-18] MEDS: METOPROLOL SUCCINATE XL 50 MG TABLET PO SCH (22:59)
[2021-08-18] MEDS: DEXMEDETOMIDINE 400 MCG in SODIUM CHLORIDE 0.9% 96 ML IV PRN (23:38)
[2021-08-19] MEDS: PHENYLEPHRINE DRIP 40 MG/250 ML PREMIX IV PRN ×3 (00:20→18:52)
[2021-08-19] MEDS: methylPREDNISolone SOD SUC 40 MG/1 ML VIAL IV SCH ×3 (00:23→16:07)
[2021-08-19] MEDS: INSULIN REGULAR 100 UNIT/ML SUBCUT SCH ×4 (00:23→17:57)
[2021-08-19] MEDS: METOPROLOL TARTRATE 5 MG/5 ML VIAL IV SCH ×4 (00:28→17:57)
[2021-08-19] MEDS: SODIUM BICARB INJ 100 MEQ in DEXTROSE 5% NACL 0.45% 1,000 ML IV SCH ×2 (02:00→14:39)
[2021-08-19 04:18] LABS: ABG Base Excess -6.4 MMOL/L (-2.5-2.5); ABG HCO3 19.1 MMOL/L (20-26); ABG Oxygen Saturation 99.1 % (95-100); ABG PCO2 23.5 MM HG (35-48); ABG PH 7.455 (7.35-7.45); ABG TCO2 15.5 MMOL/L (23-27)
[2021-08-19 04:28] LABS: Basophils # 0.1 10*3/uL (0.0-0.2); Basophils % 0.4 % (0.0-0.8); Hematocrit 23.6 VOL% (42.0-52.0); Hemoglobin 7.4 GM/DL (14.0-18.0); Immature Granulocytes Absolute 1.11 #; Lymphocytes # 0.2 10*3/uL (1.4-4.0); Lymphocytes % 1.4 % (21.2-54.2); Mean Corpuscular HGB Conc 31.4 GM/DL (32-36); Mean Corpuscular Volume 95.5 FL (87-102); Mean Platelet Volume 13.8 FL (9.6-12.0); Monocytes % 4.6 % (1.7-12.7); NRBC # 0.77 10*3/uL; Neutrophils % 85.6 % (38.7-73.9); Platelet Count 126 T/CUMM (130-400); Red Blood Count 2.47 MC/CUMM (3.8-5.5); Red Cell Distribution Width 17.6 % (9.3-17.3); White Blood Count 13.9 T/CUMM (4-12)
[2021-08-19 04:40] LABS: Albumin 1.7 G/DL (3.4-5.0); Bilirubin,Total 0.4 MG/DL (0.20-1.00); Calcium 6.1 MG/DL (8.5-10.1); Total Protein 4.8 G/DL (6.4-8.2)
[2021-08-19 04:42] LABS: Potassium 2.2 MMOL/L (3.5-5.1)
[2021-08-19 04:46] LABS: Lymphocytes 5 % (20-55); Metamyelocytes 1 %; Myelocytes 1 %; Nucleated Red Blood Cells 6 (0-5); Segmented Neutrophils 87 % (50-85); Total Cells Counted 100
[2021-08-19 04:47] LABS: Anisocytosis 1+; Microcytosis 1+; Ovalocytes Slight; Tear Drop Cells Slight
[2021-08-19] MEDS: POTASSIUM CHLORIDE RIDER 10 MEQ/100 ML PREMIX IV PRN ×2 (06:09→08:33)
[2021-08-19] MEDS ORDERED: POTASSIUM PHOSPHATE 30 MMOL in SODIUM CHLORIDE 0.9% 250 ML IV ONE (06:30)
[2021-08-19] MEDS: ZINC GLUCONATE 50 MG TABLET PO SCH (08:33)
[2021-08-19] MEDS: ASPIRIN CHEW 81 MG TABLET PO SCH (08:33)
[2021-08-19] MEDS: CHOLECALCIFEROL 1,000 UNIT TABLET PO SCH (08:33)
[2021-08-19] MEDS: ASCORBIC ACID 500 MG TABLET PO SCH ×2 (08:33→21:20)
[2021-08-19] MEDS: COLCHICINE 0.6 MG CAPSULE PO SCH ×2 (08:33→16:21)
[2021-08-19] MEDS: CETIRIZINE 10 MG TABLET PO SCH (08:33)
[2021-08-19] MEDS: amLODIPine 10 MG TABLET PO SCH (08:34)
[2021-08-19] MEDS: FAMOTIDINE 20 MG/2 ML VIAL IV SCH ×2 (08:34→21:18)
[2021-08-19] MEDS ORDERED: POTASSIUM CHLORIDE RIDER 20 MEQ/100 ML PREMIX IV ONE (08:56)
[2021-08-19] MEDS ORDERED: LACTATED RINGERS 1,000 ML IV ONE (08:57)
[2021-08-19] MEDS ORDERED: SODIUM BICARBONATE 50 MEQ/50 ML VIAL IV ONE (08:57)
[2021-08-19] MEDS ORDERED: CALCIUM GLUCONATE 2,000 MG in SODIUM CHLORIDE 0.9% 100 ML IV ONE (10:00)
[2021-08-19] MEDS: INSULIN GLARGINE 100 UNIT/ML SUBCUT SCH (13:25)
[2021-08-19] MEDS: AZITHROMYCIN INJ 500 MG in SODIUM CHLORIDE 0.9% 250 ML IV SCH (14:48)
[2021-08-19] MEDS: cefTRIAXone 1,000 MG in SODIUM CHLORIDE 0.9% 100 ML IV SCH (14:48)
[2021-08-19] MEDS: FONDAPARINUX 2.5 MG/0.5 ML SYRINGE SUBCUT SCH (16:21)
[2021-08-19] MEDS: MORPHINE 2 MG/1 ML SYRINGE IV PRN (21:05)
[2021-08-20] MEDS: MORPHINE 2 MG/1 ML SYRINGE IV PRN (00:30)
[2021-08-20] MEDS: METOPROLOL TARTRATE 5 MG/5 ML VIAL IV SCH ×4 (00:46→17:41)
[2021-08-20] MEDS: INSULIN REGULAR 100 UNIT/ML SUBCUT SCH ×4 (00:46→18:30)
[2021-08-20] MEDS: methylPREDNISolone SOD SUC 40 MG/1 ML VIAL IV SCH ×3 (00:46→17:09)
[2021-08-20 03:52] LABS: ABG Base Excess 2.7 MMOL/L (-2.5-2.5); ABG HCO3 26.8 MMOL/L (20-26); ABG Oxygen Saturation 98.8 % (95-100); ABG PCO2 27.4 MM HG (35-48); ABG TCO2 22.7 MMOL/L (23-27)
[2021-08-20 03:56] LABS: Basophils # 0.1 10*3/uL (0.0-0.2); Basophils % 0.4 % (0.0-0.8); Hematocrit 20.6 VOL% (42.0-52.0); Hemoglobin 6.7 GM/DL (14.0-18.0); Immature Granulocytes % 6.1 %; Immature Granulocytes Absolute 0.73 #; Lymphocytes # 0.3 10*3/uL (1.4-4.0); Lymphocytes % 2.8 % (21.2-54.2); Mean Corpuscular HGB Conc 32.5 GM/DL (32-36); Mean Corpuscular Volume 94.1 FL (87-102); Mean Platelet Volume 14.2 FL (9.6-12.0); Monocytes % 4.2 % (1.7-12.7); NRBC # 1.01 10*3/uL; Neutrophils % 86.5 % (38.7-73.9); Red Blood Count 2.19 MC/CUMM (3.8-5.5); Red Cell Distribution Width 17.8 % (9.3-17.3); White Blood Count 12.1 T/CUMM (4-12)
[2021-08-20 04:03] LABS: Platelet Count 99 T/CUMM (130-400)
[2021-08-20] MEDS: SODIUM BICARB INJ 100 MEQ in DEXTROSE 5% NACL 0.45% 1,000 ML IV SCH (04:07)
[2021-08-20 04:16] LABS: Albumin 1.5 G/DL (3.4-5.0); Bilirubin,Total 0.4 MG/DL (0.20-1.00); Calcium 5.9 MG/DL (8.5-10.1); Potassium 2.8 MMOL/L (3.5-5.1); Total Protein 4.4 G/DL (6.4-8.2)
[2021-08-20 04:20] LABS: Band Neutrophils 1 % (0-10); Hypochromasia 1+; Lymphocytes 5 % (20-55); Microcytosis 1+; Nucleated Red Blood Cells 14 (0-5); Platelet Estimate Decreased; Segmented Neutrophils 91 % (50-85); Total Cells Counted 100
[2021-08-20] MEDS ORDERED: SODIUM CHLORIDE 0.9% 1,000 ML IV PRN (05:05)
[2021-08-20] MEDS ORDERED: CALCIUM GLUCONATE 2,000 MG in SODIUM CHLORIDE 0.9% 100 ML IV ONE (05:30)
[2021-08-20] MEDS: MAGNESIUM SULF RIDER 2 GM/50 ML PREMIX IV PRN (05:41)
[2021-08-20] MEDS ORDERED: POTASSIUM PHOSPHATE 30 MMOL in SODIUM CHLORIDE 0.9% 250 ML IV ONE ×2 (06:00→10:00)
[2021-08-20] MEDS: PHENYLEPHRINE DRIP 40 MG/250 ML PREMIX IV PRN ×2 (07:03→17:36)
[2021-08-20] MEDS: DEXMEDETOMIDINE 400 MCG in SODIUM CHLORIDE 0.9% 96 ML IV PRN (07:33)
[2021-08-20] MEDS ORDERED: MAGNESIUM SULF RIDER 2 GM/50 ML PREMIX IV ONE ×2 (08:46→18:05)
[2021-08-20] MEDS ORDERED: LACTATED RINGERS 1,000 ML IV ONE (08:51)
[2021-08-20] MEDS ORDERED: CALCIUM GLUCONATE 1,000 MG in SODIUM CHLORIDE 0.9% 100 ML IV ONE ×2 (09:00→18:05)
[2021-08-20] MEDS: FAMOTIDINE 20 MG/2 ML VIAL IV SCH ×2 (10:28→20:03)
[2021-08-20] MEDS: ASPIRIN CHEW 81 MG TABLET PO SCH (10:28)
[2021-08-20] MEDS: COLCHICINE 0.6 MG CAPSULE PO SCH ×2 (10:28→17:09)
[2021-08-20] MEDS: amLODIPine 10 MG TABLET PO SCH (10:28)
[2021-08-20] MEDS: INSULIN GLARGINE 100 UNIT/ML SUBCUT SCH (10:28)
[2021-08-20] MEDS: ZINC GLUCONATE 50 MG TABLET PO SCH (10:29)
[2021-08-20] MEDS: ASCORBIC ACID 500 MG TABLET PO SCH ×2 (10:29→20:03)
[2021-08-20] MEDS: CETIRIZINE 10 MG TABLET PO SCH (10:29)
[2021-08-20] MEDS: CHOLECALCIFEROL 1,000 UNIT TABLET PO SCH (10:29)
[2021-08-20] MEDS: POTASSIUM CHLORIDE RIDER 10 MEQ/100 ML PREMIX IV PRN ×6 (11:59→22:36)
[2021-08-20] MEDS: cefTRIAXone 1,000 MG in SODIUM CHLORIDE 0.9% 100 ML IV SCH (15:57)
[2021-08-20] MEDS: AZITHROMYCIN INJ 500 MG in SODIUM CHLORIDE 0.9% 250 ML IV SCH (15:57)
[2021-08-20] MEDS: FONDAPARINUX 2.5 MG/0.5 ML SYRINGE SUBCUT SCH (17:09)
[2021-08-20 17:27] LABS: Calcium 6.2 MG/DL (8.5-10.1); Osmolality,Calculated 319.3 MOS/KG (273-304); Potassium 3.3 MMOL/L (3.5-5.1)
[2021-08-20 21:30] LABS: Hematocrit 27.1 VOL% (42.0-52.0)
[2021-08-20 21:32] LABS: Hemoglobin 8.4 GM/DL (14.0-18.0)
[2021-08-21] MEDS: methylPREDNISolone SOD SUC 40 MG/1 ML VIAL IV SCH ×3 (00:30→16:50)
[2021-08-21] MEDS: METOPROLOL TARTRATE 5 MG/5 ML VIAL IV SCH ×4 (00:30→17:48)
[2021-08-21] MEDS: MORPHINE 2 MG/1 ML SYRINGE IV PRN ×3 (00:30→22:20)
[2021-08-21] MEDS: INSULIN REGULAR 100 UNIT/ML SUBCUT SCH ×4 (00:30→18:46)
[2021-08-21 04:21] LABS: ABG Base Excess 2.4 MMOL/L (-2.5-2.5); ABG HCO3 26.5 MMOL/L (20-26); ABG PCO2 29.7 MM HG (35-48); ABG PH 7.529 (7.35-7.45)
[2021-08-21 04:29] LABS: Basophils # 0.1 10*3/uL (0.0-0.2); Basophils % 0.7 % (0.0-0.8); Hematocrit 27.8 VOL% (42.0-52.0); Hemoglobin 8.9 GM/DL (14.0-18.0); Immature Granulocytes % 7.1 %; Immature Granulocytes Absolute 0.84 #; Lymphocytes # 0.4 10*3/uL (1.4-4.0); Lymphocytes % 3.7 % (21.2-54.2); Mean Corpuscular Volume 90.8 FL (87-102); NRBC # 2.16 10*3/uL; Neutrophils % 84.5 % (38.7-73.9); Platelet Count 100 T/CUMM (130-400); Red Blood Count 3.06 MC/CUMM (3.8-5.5); Red Cell Distribution Width 18.2 % (9.3-17.3); White Blood Count 11.8 T/CUMM (4-12)
[2021-08-21 04:39] LABS: Calcium 6.2 MG/DL (8.5-10.1); Osmolality,Calculated 308.6 MOS/KG (273-304); Potassium 3.8 MMOL/L (3.5-5.1)
[2021-08-21] MEDS ORDERED: CALCIUM GLUCONATE 1,000 MG in SODIUM CHLORIDE 0.9% 100 ML IV ONE ×2 (05:00→08:51)
[2021-08-21 05:02] LABS: Band Neutrophils 1 % (0-10); Hypochromasia Slight; Lymphocytes 8 % (20-55); Nucleated Red Blood Cells 43 (0-5); Platelet Estimate Adequate; Segmented Neutrophils 3 % (50-85); Total Cells Counted 100
[2021-08-21] MEDS: POTASSIUM CHLORIDE RIDER 10 MEQ/100 ML PREMIX IV PRN ×2 (05:08→06:49)
[2021-08-21] MEDS: FAMOTIDINE 20 MG/2 ML VIAL IV SCH ×2 (08:17→20:46)
[2021-08-21] MEDS: INSULIN GLARGINE 100 UNIT/ML SUBCUT SCH (08:17)
[2021-08-21] MEDS: COLCHICINE 0.6 MG CAPSULE PO SCH ×2 (08:17→16:50)
[2021-08-21] MEDS: ASPIRIN CHEW 81 MG TABLET PO SCH (08:17)
[2021-08-21] MEDS: amLODIPine 10 MG TABLET PO SCH (08:17)
[2021-08-21] MEDS: CHOLECALCIFEROL 1,000 UNIT TABLET PO SCH (08:18)
[2021-08-21] MEDS: ZINC GLUCONATE 50 MG TABLET PO SCH (08:18)
[2021-08-21] MEDS: ASCORBIC ACID 500 MG TABLET PO SCH ×2 (08:18→20:46)
[2021-08-21] MEDS: CETIRIZINE 10 MG TABLET PO SCH (08:18)
[2021-08-21] MEDS ORDERED: POTASSIUM PHOSPHATE 30 MMOL in SODIUM CHLORIDE 0.9% 250 ML IV ONE (08:52)
[2021-08-21] MEDS: PHENYLEPHRINE DRIP 40 MG/250 ML PREMIX IV PRN (09:31)
[2021-08-21] MEDS: DEXMEDETOMIDINE 400 MCG in SODIUM CHLORIDE 0.9% 96 ML IV PRN (11:40)
[2021-08-21] MEDS: cefTRIAXone 1,000 MG in SODIUM CHLORIDE 0.9% 100 ML IV SCH (13:49)
[2021-08-21] MEDS: FONDAPARINUX 2.5 MG/0.5 ML SYRINGE SUBCUT SCH (16:50)
[2021-08-22] MEDS: METOPROLOL TARTRATE 5 MG/5 ML VIAL IV SCH ×4 (01:38→18:24)
[2021-08-22] MEDS: INSULIN REGULAR 100 UNIT/ML SUBCUT SCH ×4 (01:38→17:18)
[2021-08-22] MEDS: methylPREDNISolone SOD SUC 40 MG/1 ML VIAL IV SCH ×4 (01:46→21:12)
[2021-08-22] MEDS: MORPHINE 2 MG/1 ML SYRINGE IV PRN ×3 (04:10→15:02)
[2021-08-22] MEDS: PHENYLEPHRINE DRIP 40 MG/250 ML PREMIX IV PRN (05:15)
[2021-08-22 06:02] LABS: ABG Base Excess 2.1 MMOL/L (-2.5-2.5); ABG HCO3 26.3 MMOL/L (20-26); ABG Oxygen Saturation 95.6 % (95-100); ABG PCO2 29.3 MM HG (35-48); ABG PH 7.529 (7.35-7.45); ABG PO2 74.1 MM HG (80-95); ABG TCO2 22.6 MMOL/L (23-27)
[2021-08-22 06:15] LABS: Basophils % 0.4 % (0.0-0.8); Hematocrit 24.4 VOL% (42.0-52.0); Hemoglobin 7.6 GM/DL (14.0-18.0); Immature Granulocytes % 2.4 %; Immature Granulocytes Absolute 0.12 #; Lymphocytes # 0.3 10*3/uL (1.4-4.0); Lymphocytes % 6.1 % (21.2-54.2); Mean Corpuscular HGB Conc 31.1 GM/DL (32-36); Mean Corpuscular Volume 94.2 FL (87-102); Mean Platelet Volume 13.9 FL (9.6-12.0); Monocytes % 4.7 % (1.7-12.7); NRBC # 0.58 10*3/uL; Neutrophils % 86.4 % (38.7-73.9); Red Blood Count 2.59 MC/CUMM (3.8-5.5); Red Cell Distribution Width 18.6 % (9.3-17.3); White Blood Count 5.1 T/CUMM (4-12)
[2021-08-22 06:21] LABS: Platelet Count 97 T/CUMM (130-400)
[2021-08-22 06:39] LABS: Osmolality,Calculated 296.3 MOS/KG (273-304); Potassium 4.5 MMOL/L (3.5-5.1)
[2021-08-22 06:42] LABS: Calcium 5.4 MG/DL (8.5-10.1)
[2021-08-22 06:48] LABS: Band Neutrophils 6 % (0-10); Hypochromasia 1+; Lymphocytes 13 % (20-55); Nucleated Red Blood Cells 15 (0-5); Segmented Neutrophils 75 % (50-85); Total Cells Counted 100
[2021-08-22 06:49] LABS: Microcytosis 2+; Ovalocytes Slight
[2021-08-22 06:50] LABS: Platelet Estimate Decreased
[2021-08-22] MEDS: ASPIRIN CHEW 81 MG TABLET PO SCH (08:19)
[2021-08-22] MEDS: CHOLECALCIFEROL 1,000 UNIT TABLET PO SCH (08:19)
[2021-08-22] MEDS: COLCHICINE 0.6 MG CAPSULE PO SCH ×2 (08:19→16:41)
[2021-08-22] MEDS: ZINC GLUCONATE 50 MG TABLET PO SCH (08:19)
[2021-08-22] MEDS: CETIRIZINE 10 MG TABLET PO SCH (08:19)
[2021-08-22] MEDS: INSULIN GLARGINE 100 UNIT/ML SUBCUT SCH (08:19)
[2021-08-22] MEDS: ASCORBIC ACID 500 MG TABLET PO SCH ×2 (08:19→21:12)
[2021-08-22] MEDS: amLODIPine 10 MG TABLET PO SCH (08:30)
[2021-08-22] MEDS: FAMOTIDINE 20 MG/2 ML VIAL IV SCH ×2 (08:31→21:13)
[2021-08-22] MEDS ORDERED: FUROSEMIDE 40 MG/4 ML VIAL IV ONE (08:48)
[2021-08-22] MEDS ORDERED: CALCIUM GLUCONATE 1,000 MG in SODIUM CHLORIDE 0.9% 100 ML IV ONE (12:07)
[2021-08-22] MEDS: ALBUTEROL/IPRATROPIUM 3 ML NEB RESP TX SCH ×2 (12:30→19:07)
[2021-08-22] MEDS ORDERED: SODIUM CHLORIDE 0.9% 1,000 ML IV PRN (14:08)
[2021-08-22] MEDS ORDERED: FONDAPARINUX 2.5 MG/0.5 ML SYRINGE SUBCUT SCH (14:09)
[2021-08-22] MEDS: cefTRIAXone 1,000 MG in SODIUM CHLORIDE 0.9% 100 ML IV SCH (14:52)
[2021-08-22] MEDS: SODIUM CHLORIDE 3% 4 ML NEB RESP TX SCH (19:07)
[2021-08-22 20:40] LABS: Hematocrit 32.4 VOL% (42.0-52.0); Hemoglobin 10.4 GM/DL (14.0-18.0)
[2021-08-22] MEDS: APIXABAN 2.5 MG TABLET PO SCH (21:12)
[2021-08-23] MEDS: INSULIN REGULAR 100 UNIT/ML SUBCUT SCH ×3 (00:39→12:46)
[2021-08-23] MEDS: METOPROLOL TARTRATE 5 MG/5 ML VIAL IV SCH ×3 (00:39→14:21)
[2021-08-23] MEDS: ALBUTEROL/IPRATROPIUM 3 ML NEB RESP TX SCH ×3 (00:40→13:55)
[2021-08-23 04:43] LABS: Basophils % 0.7 % (0.0-0.8); Hematocrit 28.7 VOL% (42.0-52.0); Hemoglobin 9.3 GM/DL (14.0-18.0); Immature Granulocytes % 3.6 %; Lymphocytes # 0.1 10*3/uL (1.4-4.0); Mean Corpuscular HGB Conc 32.4 GM/DL (32-36); Mean Corpuscular Volume 87.8 FL (87-102); Monocytes % 2.5 % (1.7-12.7); NRBC # 0.28 10*3/uL; Neutrophils % 89.2 % (38.7-73.9); Red Cell Distribution Width 17.5 % (9.3-17.3)
[2021-08-23 04:45] LABS: Platelet Count 85 T/CUMM (130-400); Red Blood Count 3.27 MC/CUMM (3.8-5.5); White Blood Count 2.8 T/CUMM (4-12)
[2021-08-23 04:56] LABS: ABG Base Excess 2.2 MMOL/L (-2.5-2.5); ABG HCO3 26.4 MMOL/L (20-26); ABG Oxygen Saturation 96.6 % (95-100); ABG PCO2 25.9 MM HG (35-48); ABG PH 7.567 (7.35-7.45); ABG PO2 79.9 MM HG (80-95); ABG TCO2 21.5 MMOL/L (23-27)
[2021-08-23 05:03] LABS: Band Neutrophils 2 % (0-10); Hypochromasia 1+; Lymphocytes 9 % (20-55); Microcytosis 1+; Nucleated Red Blood Cells 11 (0-5); Platelet Estimate Decreased; Segmented Neutrophils 88 % (50-85); Total Cells Counted 100
[2021-08-23 05:15] LABS: Albumin 1.4 G/DL (3.4-5.0); Bilirubin,Total 0.7 MG/DL (0.20-1.00); Osmolality,Calculated 296.7 MOS/KG (273-304); Potassium 3.8 MMOL/L (3.5-5.1); Total Protein 4.7 G/DL (6.4-8.2)
[2021-08-23 05:26] LABS: Calcium 5.2 MG/DL (8.5-10.1)
[2021-08-23] MEDS ORDERED: CALCIUM GLUCONATE 2,000 MG in SODIUM CHLORIDE 0.9% 100 ML IV ONE (06:30)
[2021-08-23] MEDS: methylPREDNISolone SOD SUC 40 MG/1 ML VIAL IV SCH (06:32)
[2021-08-23] MEDS: POTASSIUM CHLORIDE RIDER 10 MEQ/100 ML PREMIX IV PRN (06:35)
[2021-08-23] MEDS: SODIUM CHLORIDE 3% 4 ML NEB RESP TX SCH (07:40)
[2021-08-23] MEDS ORDERED: MIDAZOLAM 2 MG/2 ML VIAL IV ONE (10:16)
[2021-08-23] MEDS ORDERED: ROCURONIUM 100 MG/10 ML VIAL IV ONE (10:17)
[2021-08-23] MEDS ORDERED: LORazepam 2 MG/1 ML VIAL IV PRN (10:37)
[2021-08-23] MEDS ORDERED: MORPHINE 2 MG/1 ML SYRINGE IV PRN (10:37)
[2021-08-23] MEDS: ASPIRIN CHEW 81 MG TABLET PO SCH (10:43)
[2021-08-23] MEDS: APIXABAN 2.5 MG TABLET PO SCH (10:43)
[2021-08-23] MEDS: COLCHICINE 0.6 MG CAPSULE PO SCH (10:43)
[2021-08-23] MEDS: amLODIPine 10 MG TABLET PO SCH (10:44)
[2021-08-23] MEDS: FAMOTIDINE 20 MG/2 ML VIAL IV SCH (10:44)
[2021-08-23] MEDS: INSULIN GLARGINE 100 UNIT/ML SUBCUT SCH (10:44)
[2021-08-23] MEDS: ZINC GLUCONATE 50 MG TABLET PO SCH (10:46)
[2021-08-23] MEDS: ASCORBIC ACID 500 MG TABLET PO SCH (10:46)
[2021-08-23] MEDS: CHOLECALCIFEROL 1,000 UNIT TABLET PO SCH (10:46)
[2021-08-23] MEDS ORDERED: NOREPINEPHRINE 8 MG in SODIUM CHLORIDE 0.9% 242 ML IV PRN (11:00)
[2021-08-23] MEDS ORDERED: METOPROLOL TARTRATE 5 MG/5 ML VIAL IV PRN (12:51)
[2021-08-23] MEDS: MORPHINE 2 MG/1 ML SYRINGE IV PRN (19:50)
[2021-08-24 08:48] VITALS: BP 44/30
[2021-08-24] MEDS: ASPIRIN CHEW 81 MG TABLET PO SCH (10:15)
== END 2021-08-24 15:47 | disposition hospice, inpatient (51) | DRG 870 ==
LOC: EDUNIT# → EDBD → N.ED 11:27 → SUATTDRO 13:44 → N.EDINP 13:44 → N.CC 14:16 → N.4E 08-23 12:24
PROVIDERS: ADMIT Internal Medicine; ATTEND Internal Medicine

== ENCOUNTER 2021-08-24 15:49 | Inpatient (IN) ==
[2021-08-24] MEDS ORDERED: LORazepam 2 MG/1 ML VIAL IV PRN (17:22)
[2021-08-24] MEDS: MORPHINE 2 MG/1 ML SYRINGE IV PRN (18:24)
[2021-08-25] MEDS: MORPHINE 2 MG/1 ML SYRINGE IV PRN (13:57)
== END 2021-08-25 22:58 | disposition expired | DRG 951 ==
LOC: N.4E 15:49
PROVIDERS: ADMIT Internal Medicine; ATTEND Internal Medicine